=== PATIENT | female | born 1960 | race Caucasian/White ===

== ENCOUNTER → 2022-04-17 | Outpatient (CLI) | payer OTHER ==
--- NOTE | 2022-04-17 16:22 | Diagnostic Imaging Report ---
Indication: Shortness of breath. Time of Exam: 10:44 AM No prior studies are available for comparison. Findings: The heart size is normal. The pulmonary vascularity is unremarkable. The lungs are clear. No infiltrate, effusion or pneumothorax is detected. Impression: No acute cardiopulmonary process is detected. Dictated by: Dictated on workstation # [id number]
--- NOTE | 2022-04-17 16:28 | Diagnostic Imaging Report ---
Indication: Low back pain. Time of Exam: 10:45 AM 3 views lumbar spine were obtained. There is some straightening of the normal lumbar lordotic curvature. Vertebral body heights are well-maintained. No acute compression fracture seen. There is degenerative disc disease at L5-S1 level with disc space narrowing and marginal spurring. All other disc spaces show fairly normal stature. IMPRESSION: L5-S1 degenerative disc disease. No acute bony abnormality is detected. Dictated by: Dictated on workstation # [id number]
--- NOTE | 2022-04-17 16:28 | Diagnostic Imaging Report ---
Indication: Left knee pain. Time of Exam: 10:46 AM 2 views left knee were obtained. Alignment is normal. Joint spaces are well-maintained. Articular surfaces are smooth. There is mild patellofemoral degenerative change. There is some spurring of the tibial spines. No fracture, dislocation or effusion is detected. Impression: Mild degenerative changes. No acute bony abnormality is detected. Dictated by: Dictated on workstation # [id number]
== END ==
LOC: RAD 10:24
PROVIDERS: ATTEND Family Medicine
DX: M51.37 Other intervertebral disc degeneration, lumbosacral region (principal); M17.12 Unilateral primary osteoarthritis, left knee; R06.02 Shortness of breath
CPT/HCPCS: 71046; 72100; 73560